=== PATIENT | male | born 1945 | race Caucasian/White ===

== ENCOUNTER 2017-03-30 13:00 | Inpatient (IN) | payer MEDICARE, OTHER ==
[~2017-03-30 13:00] MED LIST: ACETAMINOPHEN 1,000 MG/100 ML BTL IV ONE; CELECOXIB 100 MG CAPSULE PO ONE; FAMOTIDINE 20MG TABLET PO ONE; MECLIZINE 25 MG TABLET PO ONE; METOCLOPRAMIDE 10 MG TABLET PO ONE; VANCOMYCIN HCL 1,000 MG in DEXTROSE 5 % IN WATER 250 ML IVPB ONE
[2017-06-01] MEDS ORDERED: VANCOMYCIN HCL 1,000 MG in DEXTROSE 5 % IN WATER 250 ML IVPB ONE ×2 (06:00)
[2017-06-01] MEDS ORDERED: METOCLOPRAMIDE 10 MG TABLET PO ONE (06:00)
[2017-06-01] MEDS ORDERED: FAMOTIDINE 20MG TABLET PO ONE (06:00)
[2017-06-01] MEDS ORDERED: ACETAMINOPHEN 1,000 MG/100 ML BTL IV ONE (06:00)
[2017-06-01] MEDS ORDERED: MECLIZINE 25 MG TABLET PO ONE (06:00)
[2017-06-01] MEDS ORDERED: CELECOXIB 100 MG CAPSULE PO ONE (06:00)
[2017-06-01] MEDS ORDERED: HYDROMORPHONE HCL 2 MG/ML VIAL IM PRN (12:25)
[2017-06-01] MEDS ORDERED: AL HYDROX/MAG HYDROX 30ML UD PO PRN (12:25)
[2017-06-01] MEDS ORDERED: MORPHINE SULFATE 5 MG/ML PFS IVP PRN ×4 (12:25)
[2017-06-01] MEDS ORDERED: HYDROMORPHONE HCL 1 MG/ML SYRINGE IM PRN (12:25)
[2017-06-01] MEDS ORDERED: HYDROCODONE/APAP 7.5/325MG TABLET PO PRN ×2 (12:25)
[2017-06-01] MEDS ORDERED: ACETAMINOPHEN W/ CODEINE 300MG/30MG TABLET PO PRN ×2 (12:25)
[2017-06-01] MEDS ORDERED: NALOXONE 0.4 MG/1 ML VIAL IVP PRN (12:25)
[2017-06-01] MEDS ORDERED: ONDANSETRON HCL IV 4 MG/2 ML VIAL IVP PRN (12:25)
[2017-06-01] MEDS ORDERED: BISACODYL 10 MG SUPP RC PRN (12:25)
[2017-06-01] MEDS ORDERED: ZOLPIDEM TARTRATE 5 MG TABLET PO PRN (12:25)
[2017-06-01] MEDS ORDERED: KETOROLAC 30 MG/ML VIAL IVP PRN ×2 (12:25)
[2017-06-01] MEDS ORDERED: PROMETHAZINE HCL 12.5 MG in 0.9 % SODIUM CHLORIDE 100ML 50 ML IVPB PRN (12:25)
[2017-06-01] MEDS ORDERED: TRAMADOL HCL 50 MG TABLET PO PRN ×2 (12:25)
[2017-06-01] MEDS ORDERED: ACETAMINOPHEN W/ CODEINE 300MG/60MG TABLET PO PRN ×2 (12:25)
[2017-06-01] MEDS ORDERED: METOCLOPRAMIDE HCL 10 MG/2 ML VIAL IVP PRN (12:25)
[2017-06-01] MEDS ORDERED: HYDROCODONE/APAP 5/325MG TABLET PO PRN ×2 (12:25)
[2017-06-01] MEDS ORDERED: DIPHENHYDRAMINE HCL 25 MG CAPSULE PO PRN (12:25)
[2017-06-01] MEDS ORDERED: MAGNESIUM HYDROXIDE 30 ML UDC PO PRN (12:25)
[2017-06-01 12:33] LABS: ABO GROUP O; ANTIBODY SCREEN NEGATIVE (NEGATIVE); RH TYPE POSITIVE
[2017-06-01] MEDS ORDERED: DEXTROSE 5 % AND 0.9 % NACL 1,000 ML IV PRN (13:45)
[2017-06-01] MEDS ORDERED: VANCOMYCIN HCL 1 GM VIAL IVPB ONE (14:00)
[2017-06-01] MEDS: FERROUS SULFATE 325 MG TAB PO SCH (22:58)
[2017-06-01] MEDS: DOCUSATE SODIUM 100 MG CAPSULE PO SCH (22:58)
[2017-06-02] MEDS: VANCOMYCIN HCL 1,000 MG in DEXTROSE 5 % IN WATER 250 ML IVPB SCH ×4 (01:33→10:50)
[2017-06-02] MEDS: ACETAMINOPHEN 325 MG TAB PO PRN ×2 (03:14→10:00)
[2017-06-02 07:12] LABS: HEMATOCRIT 41.9 % (42.0-52.0); HEMOGLOBIN 13.5 gm/dl (14.0-18.0)
--- NOTE | 2017-06-02 07:34 | Operative Note ---
DATE OF SURGERY: 06/02/2017. PREOPERATIVE DIAGNOSIS: Left knee endstage arthrosis. POSTOPERATIVE DIAGNOSIS: Left knee endstage arthrosis. OPERATION: Left total knee arthroplasty. SURGEON: Andrea Espinoza M.D. ANESTHESIA: Spinal, Duncan Cooper CRNA. COMPLICATIONS: None. ESTIMATED BLOOD LOSS: Minimal. OPERATIVE FINDINGS: Rouy-[id number]-[id number] knee arthrosis. COMPONENTS PLACED: A total of 2.0 gm vancomycin cement, [employer] Journey II Oxinium size 8 femoral component, size 8 tibial baseplate, a 30 mm thick tibial poly insert, 35 mm cemented patellar component. INDICATIONS: This is an 71-year-old male with persistent pain and dysfunction in his knees for several years. He has failed nonoperative treatment. I did his shoulder replacements previously, and he was scheduled for a knee replacement. I explained the risks and benefits of surgery in detail for the diagnosis and procedures including but not limited to infection, nerve injury, vessel injury, persistent pain, stiffness, numbness and tingling in his knee, periprosthetic fracture, need for resection arthroplasty should the components become infected or loosened, blood clot and the need for further procedures. All of his questions were answered. The course was thoroughly outlined and he agreed to proceed. PROCEDURE: The patient brought to the operating room. He was placed in the supine position and was prepared for surgery. Spinal anesthesia was induced. His left lower extremity was prepped and draped in sterile fashion. The left knee was prepped again with ChloraPrep and draped. Intraoperative time out was performed. Next, the knee was injected with 0.5% Marcaine with epinephrine. The leg was exsanguinated with Esmarch and the knee was flexed. The tourniquet was inflated to 250 mm Hg pressure. Next, a midline incision was made. The skin and subcutaneous tissues were dissected down to the capsule. Incised the capsule medially around the medial border of the patella to the tibial tubercle. We incised the vastus medialis in line with its fibers in a mid vastus approach. I elevated the capsule subperiosteally and medially. I then everted the patella and flexed the knee. I partially resected the retropatellar fat pad. I drilled an intracondylar drill hole and inserted the intramedullary guide patsy. I used the 60-degree cutting block and aligned it with the distal femoral condyle and pinned it in place in the +2.0 mm position. I then inserted the sizing jig on the distal femoral condyle and sized it to be right on size 8. Through the previously-placed pin holes we placed the 5 in 1 cutting jig to size 8. We dialed in the anterior cut so it would come out flush without notching. We cut that and it was a good flush cut. Next, we pinned the cutting jig in place and cut the remaining chamfer cuts in the usual fashion. I placed a size 8 femoral component, centered it, and pinned it. I then removed osteophytes off the periphery. I inserted the femoral resection collet. I reamed out with a box osteotome the cruciate bone block. Next, attention was turned to the tibia. Placed and seated the spikes and the external-alignment jig in the intertubercular groove two fingerbreadths distal to the anterior tibial cortex off the center of the tibial tubercle. Referenced for a 7.0 mm cut off the higher lateral plateau. There we pinned it in place with two anterior-posterior pins. Next, we rechecked the alignment with the cutting jig using a drop patsy, centering it on the tibial anatomic access. We centered it and pinned it and then cut the tibia. Next, we removed osteophytes off the posterior femoral condyles. This was slightly tight medially as expected. Therefore I released some of the capsule deep MCL and sized up; basically a size 13 mm block. Inserted to allow for 2.0 to 3.0 mm of varus and valgus laxity in flexion and extension. Overall alignment in extension was anatomic valgus orientation with alignment rods sitting on the hip joint and ankle joint. Next we took the knee in flexion and sized the tibial baseplate to be size 8. Replaced all trial components. Set the rotation tibial base plate in extension using the alignment patsy sitting on the hip joint and ankle joint. Marked electrocautery winchester on the anterior tibial cortex off the laser winchester of the tibial baseplate. Attention was now turned to the patella. I measured the patella and set the cutting jig to allow for a 9.0 mm thick poly insert. Cut the patella with the cutting jig and remeasured. It measured size 17. I chamfered off the lateral patellar facet. I medialized as much as possible for a 35 mm patella. I drilled three peg holes. Next, I placed the trial patella and did a trial range of motion. I mixed the cement. The patella tracked nicely and was free with full extension and flexion to 140 to 150 degrees with, again, symmetric flexion and extension gaps. Next I took the knee into flexion. I seated the tibial baseplate off the previously placed electrocautery winchester. I pinned it in place and reamed out and keel punched the keel hole. I placed a bone plug in the femoral canal hole. Next I precoated both surfaces and then impacted down down the tibial component and then the femoral component. I placed the trial poly liner and clamped down the patellar component. I held the knee in extension until the cement hardened. Once the cement hardened, I took the knee in flexion. I distracted the knee with a bone hook and sponge, removing the excess cement off the edges of the components. Irrigated copiously. We injected the capsule deep periosteally, medially and laterally, vastus medialis subcutaneously with our mixture of 0.5% Marcaine with epinephrine, 2.0 gm tranexamic acid, and Exparel thoroughly. Next, we inserted the real tibial poly insert and verified it was interlocked medially and laterally. I found our range of motion was still the same. We closed the knee in flexion. Closed the vastus medialis with a running #2 Quill suture and the capsule. I irrigated again and closed the skin deep with 2-0 Vicryl and a zip line for the skin. He tolerated the procedure well. No intraoperative complications. Sponge, needle, and blade counts correct. Recovery room stable, neurovascularly intact. He will be discharged likely tomorrow and will follow up in two weeks. cc: Eugenio Meyer M.D. JOB NUMBER: [id number] MTDD
[2017-06-02] MEDS: FERROUS SULFATE 325 MG TAB PO SCH (09:58)
[2017-06-02] MEDS ORDERED: CELECOXIB 100 MG CAPSULE PO SCH (10:00)
[2017-06-02] MEDS ORDERED: RIVAROXABAN 10 MG TABLET PO SCH (10:00)
[2017-06-02] MEDS: DOCUSATE SODIUM 100 MG CAPSULE PO SCH (10:04)
--- NOTE | 2017-06-02 10:13 | Rehab Evaluation ---
Patient Information - Patient Information Diagnosis: L knee OA Ordered Treatment: PT Evaluate and Treat Status: Initial Evaluation Surgery: Yes (LTKA) Date of Surgery: 06/01/17 Past Medical/Surgical Hx: PAST MEDICAL/SURGICAL HISTORY Past Surgical History c scope right nephrectomy liver sx and ablation; BOWEL RESECTION W/ COLOSTOMY REVERSAL COLOSTOMY right shoulder replacement 05/01/17Robotic wedge resection left lung for biopsy 05/20/17Placement of infusaport r chest PMH - Respiratory Hx Respiratory Disorders Yes Comment: shallow breather; lung CA-(primary colon) dx PMH - Cardiovascular Hx Cardiovascular Disorders Yes Hx Abnormal EKG Yes Hx Heart Attack Yes: 12 years ago possibly Hx Hypertension Yes Exercise Tolerance Fair Comment: due to knee pain PMH - Neuro Hx Neurological Disorders No PMH - GI Hx Gastrointestinal Disorders Yes Hx Gastroesophageal Reflux Yes: if eats too close to bedtime Hx Liver Disease Yes: cancer clear x's 5 years until 04/19-in lung Comment: Colon CA-colostomy w/reversal;metastatic PMH - Hx Genitourinary Disorders Yes Hx Renal Disease Yes: cancer 9 years ago;metastatic colon PMH - Endocrine Hx Endocrine Disorders No PMH - Musculoskeletal Hx Musculoskeletal Disorders Yes Hx Arthritis Yes: knees PMH - Psych Hx Psychiatric Problems No PMH - Hematology/Oncology Hx Hematology/Oncology Yes Disorders Hx Cancer Yes: kidney and liver 9 years ago 5 years clear Hx Chemotherapy Yes Comment: liver lesion ablation. nephrectomy right. Colon primary, Left lung-prim col Premorbid Status: Detail (The patient's ambulated independently limited distances due to bilateral knee pain prior to surgery.) Social History: Detail (The patient lives with in a single story home with 2 steps into the house with railings that are wide and difficulty to reach. The patient reports he has a partial ranp that eliminates one step leaving only one small step to get into the house. The patient's home has two bathrooms: one is equipped with a [id number] with a seat, the other with a jet tub, both bathrooms have elevated toilet seats without grab bars.) Precautions: Other (WBAT on the L LE.) - Time With Patient Total Time Spent With Patient (Min): 30 Treatment Procedures: Detail (Initial Evaluation, Gait training) Subjective Information - Subjective Information Per Patient (The patient has complaints of level 2 L knee pain.) Objective Data - Mental Status Patient Orientation: Oriented x3 - Visual Perception Appears within normal limits for therapeutic activities - ROM Not within normal limits (The patient's L knee pain was not formally measured however 75 degrees of flexion and -5 degrees of extension.) - Strength/Tone Within normal limits (The patient's bilateral LE strength was within functional limits,( the patient was able to complete a L SLR).) - Bed Mobility Independent (The patient was independent with supine to and from sit transfer, hooking R LE under L. The patient was independent with scootin up in bed.) - Transfers Independent (The patient was independent with sit to and from stand transfer.) - Balance Balance Sitting: Good Balance Standing: Good - Sensation Intact - Gait Detail (The patient ambulated 60 feet independently WBAT on the L LE with wheeled walker. The patient ambulated on steps with use of one railing and folded walker WBAT on the L LE with supervision for safety only. The patient initially required verbal cues for proper technique.) Therapy Assessment - Therapy Assessment Detail (The patient was independent with bed mobility, transfers and ambulation on levels , with supervision on stairs for safety only. The patient was independent with HEP, with verbal cues for proper technique and to recall all the exercises. The patient has a written HEP issued in a pre-op package.) Patient Education - Patient Education Teaching Topic: Exercise/Activity (The patient completed TKA exercises: heel slides seated and supine, SLR, ankle pumps, quad sets, gluteal sets, hamstring sets.) Response: Return Demonstration Teaching Method: Demonstration, Handout Teaching Recipient: Patient Barriers To Learning: Age Related Problem List - Problem List Physical Therapy Problem List: Detail (Decreased L knee AROM as to be expected following surgery.) Goals - Goals Physical Therapy Goals: The patient was independent with ambulation on levels, with supervision for safety on stairs. All inpatient PT goals were met. Prognosis - Prognosis Good Plan - Plan Physical Therapy Plan: Patient has met all PT goals and is discharged from inpatient PT. The patient is to receive Home PT.
--- NOTE | 2017-06-02 10:25 | Rehab Evaluation ---
Patient Information - Patient Information Diagnosis: L knee OA Ordered Treatment: OT Evaluate and Treat Status: Initial Evaluation Surgery: Yes (LTKA) Date of Surgery: 06/01/17 Past Medical/Surgical Hx: PAST MEDICAL/SURGICAL HISTORY Past Surgical History c scope right nephrectomy liver sx and ablation; BOWEL RESECTION W/ COLOSTOMY REVERSAL COLOSTOMY right shoulder replacement 05/01/17Robotic wedge resection left lung for biopsy 05/20/17Placement of infusaport r chest PMH - Respiratory Hx Respiratory Disorders Yes Comment: shallow breather; lung CA-(primary colon) dx PMH - Cardiovascular Hx Cardiovascular Disorders Yes Hx Abnormal EKG Yes Hx Heart Attack Yes: 12 years ago possibly Hx Hypertension Yes Exercise Tolerance Fair Comment: due to knee pain PMH - Neuro Hx Neurological Disorders No PMH - GI Hx Gastrointestinal Disorders Yes Hx Gastroesophageal Reflux Yes: if eats too close to bedtime Hx Liver Disease Yes: cancer clear x's 5 years until 04/19-in lung Comment: Colon CA-colostomy w/reversal;metastatic PMH - Hx Genitourinary Disorders Yes Hx Renal Disease Yes: cancer 9 years ago;metastatic colon PMH - Endocrine Hx Endocrine Disorders No PMH - Musculoskeletal Hx Musculoskeletal Disorders Yes Hx Arthritis Yes: knees PMH - Psych Hx Psychiatric Problems No PMH - Hematology/Oncology Hx Hematology/Oncology Yes Disorders Hx Cancer Yes: kidney and liver 9 years ago 5 years clear Hx Chemotherapy Yes Comment: liver lesion ablation. nephrectomy right. Colon primary, Left lung-prim col Premorbid Status: Detail (Pt lives with his in a 1 story house with basement, he will be staying on the main floor temporarily. He has a ramp and 1 -2 steps with railing depending on the entrance. He has a small step between the kitchen and living area. He has a walk in shower with seat and grab bar and a jet tub with grab bars. He is Ind with meal prep and yard work, completes laundry and home mgmt. He has a 2 wheeled walker and straight cane.) Social History: Detail (Supportive spouse.) Precautions: [place], Fall, Other (WBAT on the L LE.) - Time With Patient Total Time Spent With Patient (Min): 40 Treatment Procedures: Detail (OT eval low complexity) Subjective Information - Subjective Information Per Patient Objective Data - Pain Pain Present: Yes (05/13) - Mental Status Patient Orientation: Oriented x3 - Visual Perception Appears within normal limits for therapeutic activities - ROM Not within normal limits (Maury shoulder flexion limited premorbidly although he reports they are functional, maury elbow, wrist and hand AROM WNL) - Strength/Tone Within normal limits (Maury UE strength WNL within AROM limitations.) - Coordination Appears within normal limits for therapeutic activities - Transfers Independent (Ind with sit to stand from chair.) - Balance Balance Sitting: Good Balance Standing: Good - Sensation Intact - Gait Detail (Ambulating in room Indly with 2 wheeled walker.) - ADL's/IADL's Detail (Pt able to demonstrate total body dressing using modified dressing techniques. Reviewed shower and meal prep safety, pt verbalizes understanding.) Therapy Assessment - Therapy Assessment Detail (Pt is safe and Ind with self cares and verbalizes understanding of modified techniques for ADLs/IADLs.) Problem List - Problem List Occupational Therapy Problem List: Detail (No current OT problems identified.) Goals - Goals Occupational Therapy Goals: No current OT goals identified. Prognosis - Prognosis Good Plan - Plan Occupational Therapy Plan: No further IP OT recommended at this time. Thank you for this referral.
[2017-06-02] MEDS ORDERED: MIDAZOLAM HCL 2MG/2ML VIAL IV ONE (13:39)
[2017-06-02] MEDS ORDERED: HYDROMORPHONE HCL 2 MG/ML VIAL IV ONE (13:39)
[2017-06-02] MEDS ORDERED: DIPHENHYDRAMINE HCL IV 50 MG/ML VIAL IVP ONE (13:39)
[2017-06-02] MEDS ORDERED: EPHEDRINE SULFATE 50 MG/ML ML IV ONE (13:39)
[2017-06-02] MEDS ORDERED: BUPIVACAINE LIPOSOME 266MG/20ML VIAL IV ONE (13:39)
[2017-06-02] MEDS ORDERED: BUPIVACAINE 0.5% W/EPI MPF 30 ML VIAL IVP ONE (13:39)
[2017-06-02] MEDS ORDERED: PROPOFOL 10 MG/ML VIAL IV ONE (13:39)
[2017-06-02] MEDS ORDERED: LIDOCAINE 2% MDV (20MG/ML) 20ML VIAL IV ONE (13:39)
[2017-06-02] MEDS ORDERED: FENTANYL PF 100MCG/2ML VIAL IV ONE (13:39)
[2017-06-02] MEDS ORDERED: VANCOMYCIN HCL 1 GM VIAL IVPB ONE (13:39)
[2017-06-02] MEDS ORDERED: TRANEXAMIC ACID 1,000 MG/10 ML ML IV ONE (13:39)
== END 2017-06-02 13:40 | disposition home health service (06) | DRG 470 ==
LOC: UNDOADMIN 06-01 11:45 → MEDSURG 06-01 11:45
PROVIDERS: ADMIT Orthopaedic Surgery; ATTEND Orthopaedic Surgery
PROC: 0SRD069 Replacement of Left Knee Joint with Oxidized Zirconium on Polyethylene Synthetic Substitute, Cemented, Open Approach (ICD-10-PCS; principal; 2017-06-01 14:00)
DX: M17.12 Unilateral primary osteoarthritis, left knee (principal); I10 Essential (primary) hypertension; I25.2 Old myocardial infarction; Z90.5 Acquired absence of kidney; Z85.038 Personal history of other malignant neoplasm of large intestine
CPT/HCPCS: 85014; 85018; 86850; 86900; 86901; 97165; J1200; J7042; J7060

== ENCOUNTER 2019-05-30 13:11 | Emergency (ER) | payer MEDICARE ==
[2019-05-30] MEDS ORDERED: 0.9 % SODIUM CHLORIDE 1000ML 1,000 ML IV ONE (13:22)
--- NOTE | 2019-05-30 13:41 | Emergency Department Record ---
History of Present Illness - General Chief Complaint: Rapid heartbeat Stated Complaint: LIGHT HEADED,RAPID HEART RATE Time Seen by Provider: 05/30/19 13:22 Source: Patient, Family () Mode of Arrival: Stretcher Limitations: No limitations - History of Present Illness Initial Comments: Pt to ED from Pre Op area of [facility] for evaluation of rapid heart rate. Pt here for orthopedic procedure on left knee. Pt feeling well this AM and arrived to hospital with initial vitals stable and a heart rate of 70. During prep for surgery pt noted to have HR in the 144 range. BP remained stable per pre op RN and pt was asymptomatic. Pt's present is a RN and very familiar with his medical history. She relates a CABG 2 years ago and a history of similar events. Pt has a history of A fib and is on a beta sarkis and oral anticoagulation, however off anticoagulation due to procedure scheduled for today. Took AM beta sarkis today, Toprol. In the ED pt is alert and denies CP, ANA, nausea, dizziness. EKG in pre op appears to be SVT at 144. In ED pt is in A fib at 90-140. Pt has extensive hx of cancer with current biweekly chemo for colon cancer that has mets to the liver and lung. Hx also of renal CA with right nephrectomy and cryo therapy to tumor in left kidney. Onset/Timin -: Minutes(s) Treatments Prior to Arrival: Vagal maneuvers, Other - Related Data Home Medications Medication Instructions Recorded Confirmed Last Taken Aspirin [Aspir-Low] 81 mg PO DAILY 05/30/19 05/30/19 05/25/19 Atorvastatin Calcium [Lipitor] 40 mg PO QHS 05/30/19 05/30/19 05/28/19 Metoprolol Succinate [Toprol Xl] 25 mg PO DAILY 05/30/19 05/30/19 05/30/19 Rivaroxaban [Xarelto] 20 mg PO BID 05/30/19 05/30/19 05/25/19 Allergies Allergy/AdvReac Type Severity Reaction Status Date / Time filgrastim [From Neupogen] AdvReac GOUT Verified 05/30/19 14:00 pegfilgrastim [From Neulasta] AdvReac GOUT Verified 05/30/19 14:00 OXYPLATIN Allergy ANAPHYLAXIS Uncoded 05/30/19 14:00 Travel Screening - Travel/Exposure Within Last 30 Days Have you traveled within the last 30 days?: No - Travel/Exposure Within Last Year Have you traveled outside the [place] in the last year?: No - Additonal Travel Details Have you been exposed to anyone with a communicable illness?: No - Travel Symptoms Symptom Screening: None Review of Systems Constitutional: Denies: Chills, Fever Eyes: Denies: Photophobia ENT: Denies: Congestion, Throat pain Respiratory: Denies: Cough, Dyspnea Cardiovascular: Reports: As per HPI, Arrhythmia Endocrine: Denies: Fatigue, Polyuria Gastrointestinal: Denies: Abdominal pain, Nausea, Vomiting Musculoskeletal: Denies: Back pain Skin: Denies: Bruising, Rash Neurological: Denies: Confusion, Seizure Psychiatric: Denies: Anxiety Past Medical History - SOCIAL HISTORY Smoking Status: Never smoker Alcohol Use: None Drug Use: None - RESPIRATORY Hx Respiratory Disorders: Yes Comment:: shallow breather; lung CA-(primary colon) dx 05/01/17 - CARDIOVASCULAR Hx Cardio Disorders: Yes Hx Hypertension: Yes - NEURO Hx Neuro Disorders: No - GI Hx GI Disorders: Yes Hx Liver Disease: Yes (cancer clear x's 5 years until 04/19-in lung) - Hx Genitourinary Disorders: Yes Hx Renal Disease: Yes (cancer 9 years ago;metastatic colon) - ENDOCRINE Hx Endocrine Disorders: No - MUSCULOSKELETAL Hx Musculoskeletal Disorders: Yes Hx Arthritis: Yes (knees) - PSYCH Hx Psych Problems: No - HEMATOLOGY/ONCOLOGY Hx Hematology/Oncology Disorders: Yes Hx Cancer: Yes (kidney and liver 9 years ago 5 years clear) Hx Chemotherapy: Yes Family Medical History Any Significant Family History?: No Hx Anxiety: Father Hx Depression: Father Hx Kidney Disease: Mother, Brother/Sister Hx Resp Disorders: Father Physical Exam - General General Appearance: Alert, Oriented x3, Cooperative, No acute distress - Head Head exam: Atraumatic, Normocephalic - Eye Eye exam: Normal appearance, PERRL - ENT ENT exam: Mucous membranes moist Ear exam: Normal external inspection Nasal Exam: Normal inspection - Neck Neck exam: Normal inspection, Full ROM. negative: Tenderness - Respiratory Respiratory exam: Normal lung sounds bilaterally. negative: Respiratory distress, Rhonchi, Wheezes - Cardiovascular Cardiovascular Exam: Irregular rhythm, Tachycardia. negative: Diastolic murmur, Systolic murmur Peripheral Pulses: 2+: Radial (R), Radial (L), Dorsalis Pedis (R), Dorsalis Pedis (L) - GI/Abdominal GI/Abdominal exam: Soft, Normal bowel sounds. negative: Tenderness - Extremities Extremities exam: Other (pedal edama at +1 bilateral which is chronic per pt. Left knee with drainage that is not purulent. This is why he was in OR preo op today. ) - Back Back exam: Reports: Normal inspection. Denies: Paraspinal tenderness - Neurological Neurological exam: Alert, Oriented X3. negative: Motor sensory deficit - Psychiatric Psychiatric exam: Normal affect, Normal mood - Skin Skin exam: Normal color. negative: Rash Course Vital Signs 05/30/19 13:19 Temperature 97.9 F Pulse Rate 144 H Respiratory 16 Rate Blood Pressure 123/92 Pulse Ox 99 - Reevaluation(s) Reevaluation #1: 05/30/19 13:45 To ED on monitor with IV. EKG repeated and in A fib with RVR. present in room. On monitor pt with HR into the 70s. BP stable. Will monitor for 15 minutes prior to trying additional meds. Reevaluation #2: 05/30/19 14:16 Pt in Afib. Rates from 70 to 144. BP stable. Lopressor 5mg given IVP. M onitoring. I have talked to phil Cope, and discussed the situation and needing the patient to be back on his anticoagulation. Discussed Lovenox and he is fine with that today. Plan is for admission at [facility] and medical optimization for surgery there tomorrow. Pt's physicians at [place] include: Primary care: Dr. Eugenio Meyer Oncology: Dr. Chowdary Cardio: Dr. Peña Ortho: Dr. Espinoza Call place to [facility] Hospitalist Dr. Toscano. No stepdown "beds at present". Dr. Toscano accepts and we await a bed assignment. 05/30/19 14:34 Reevaluation #3: 05/30/19 14:48 Family, , 3 daughters, and grandson, updated on situation. HR is 702. Await bed assignment. Reevaluation #4: 05/30/19 15:40 Vitals remain stable with HR in the 70s. Bed ready at [facility]. EMS notified of transfer. Family aware Procedures - EKG Initial Date: 05/30/19 Time: 12:58 EKG: Abnormal EKG (SVT at 144) - EKG Repeat Repeat #1 EKG Repeat: Abnormal EKG EKG Detail: A fib with RVR Repeat #2 EKG Detail: A fib flutter at 72 Medical Decision Making - Lab Data Result diagrams: 05/30/19 13:50 05/30/19 13:50 Critical Care Time Critical Care Time: Yes Total Critical Care Time: 90 Critical Care Time: Pt critical care - seen in Pre op area and escorted to the ED> EKG and labs with IV meds for rapid A fib. Heparin SQ. Long talk with physicians here and at [facility]. Transfer arranged. Long discussion with multiple family members. Disposition Disposition: Transfer Clinical Impression: Atrial fibrillation with rapid ventricular response Infection associated with internal left knee prosthesis Qualifiers: Encounter type: initial encounter Qualified Code(s): T84.54XA - Infection and inflammatory reaction due to internal left knee prosthesis, initial encounter Disposition: Acute Care Hospital Transfer [facility] Reason For Transfer: Primary [employer] Contact Printer/Oncologist/Ortho at facility Accepting Physician: Dr. Toscano Time Discussed w/Accepting Physician: 14:37 (await monitored bed) Condition: (3) Guarded Forms: Patient Portal Access Time of Disposition: 15:42 Quality - Quality Measures Quality Measures: N/A - Blood Pressure Screening Does Patient Have Any of the Following: No, Active Dx of HTN Blood Pressure Classification: Hypertensive Reading Systolic Measurement: 123 Diastolic Measurement: 92 Screening for High Blood Pressure: Patient Exclusion, Hx of HTN [[id number]]
[2019-05-30 14:09] LABS: BASO % 0.2 % (0-6); EOS % 1.9 % (0-6); GRAN % 66.6 % (47-80); HEMOGLOBIN 9.5 gm/dl (14.0-18.0); LYMPH % 19.6 % (16-45); MEAN CELL VOLUME 89.9 fl (81-97); MEAN CORPUSCULAR HGB CONC 29.7 g/dl (32-36); MEAN PLATELET VOLUME 10.4 fl (7.4-10.4); MONO % 11.7 % (0-9); PLATELET COUNT 361 K/uL (130-400); RED BLOOD COUNT 3.56 M/uL (4.40-5.70); RED CELL DISTRIBUTION WIDTH 21.3 % (11.5-14.5); WHITE BLOOD COUNT W/O DIFF 5.7 K/uL (4.2-12.2)
[2019-05-30 14:15] LABS: BLOOD UREA NITROGEN 22 mg/dL (8-23); EST GLOMERULAR FILTRATION RATE > 60 mL/min; MEAN CORPUSCULAR HEMOGLOBIN 26.6 pg (27-33)
[2019-05-30] MEDS ORDERED: METOPROLOL TART 5 MG/5 ML VIAL IV ONE ×2 (14:16→15:44)
[2019-05-30 14:17] LABS: INR 1.2; PARTIAL THROMBOPLASTIN TIME 32.9 SECONDS (24.5-39.1)
[2019-05-30 14:18] LABS: GLUCOSE,RANDOM 101 mg/dL (74-109)
--- NOTE | 2019-05-30 14:29 | RADIOLOGY REPORT ---
EXAMINATION: Single View Chest EXAM DATE: 05/30/2019 2:00 PM TECHNIQUE: Single view chest INDICATION: rapid heart rate COMPARISON: None. ENCOUNTER: Not applicable FINDINGS: Central venous catheter from a right internal jugular approach is in the region of the superior vena cava. Median sternotomy wires and mediastinal surgical clips are noted. The heart, mediastinum, and pulmonary vasculature are normal. No lung consolidation or pleural effu sions are present. No pneumothorax is present. No pneumothorax. Right shoulder arthroplasty. Severe degenerative changes of the left shoulder with flattening of the humeral head. IMPRESSION: No acute abnormalities in the chest. Dictated by: Lana Delgado MD on 05/30/2019 2:26 PM. .
[2019-05-30] MEDS ORDERED: ENOXAPARIN 100 MG/ML SYR SQ ONE (14:32)
== END 2019-05-30 16:42 | disposition short-term general hospital (02) ==
LOC: ER 13:11
DX: I48.0 Paroxysmal atrial fibrillation (principal); T84.54XA Infection and inflammatory reaction due to internal left knee prosthesis, initial encounter; R60.0 Localized edema; I10 Essential (primary) hypertension; C18.9 Malignant neoplasm of colon, unspecified; C78.7 Secondary malignant neoplasm of liver and intrahepatic bile duct; C78.00 Secondary malignant neoplasm of unspecified lung; Z92.21 Personal history of antineoplastic chemotherapy; Z95.1 Presence of aortocoronary bypass graft; Z85.528 Personal history of other malignant neoplasm of kidney
CPT/HCPCS: 36416; 71045; 80048; 82948; 84484; 85025; 85610; 85730; 86850; 86900; 86901; 93005; 93010; 96372; 96374; 96376; 99291; 99292; J1650; J7120